=== PATIENT | male | born 1995 | race Two or more races ===

== ENCOUNTER 2017-09-23 10:56 | Emergency (ER) | payer OTHER ==
[~2017-09-23] VITALS: Ht 188 cm; Wt 133.3 kg
[2017-09-23 11:03] VITALS: Ht 188 cm; Wt 133.3 kg
[2017-09-23 12:27] VITALS: BP 144/82
== END 2017-09-23 12:27 | disposition home or self-care (01) ==
LOC: ED 10:56
DX: S90.32XA Contusion of left foot, initial encounter (principal); W17.89XA Other fall from one level to another, initial encounter; Y93.89 Activity, other specified; Y99.8 Other external cause status; Y92.89 Other specified places as the place of occurrence of the external cause